=== PATIENT | female | born 1995 | race Caucasian/White ===

== ENCOUNTER 2018-11-22 22:25 | Emergency (ER) | payer BC ==
[2018-11-22 22:58] LABS: URINE APPEARANCE CLEAR; URINE BILIRUBIN NEGATIVE (NEGATIVE); URINE BLOOD MODERATE (NEGATIVE); URINE COLOR YELLOW; URINE GLUCOSE (UA) NEGATIVE (NEGATIVE); URINE KETONE NEGATIVE (NEGATIVE); URINE LEUKOCYTE ESTERASE NEGATIVE (NEGATIVE); URINE NITRITE NEGATIVE (NEGATIVE); URINE PROTEIN NEGATIVE (NEGATIVE)
[2018-11-22] MEDS ORDERED: KETOROLAC 30 MG/ML VIAL IVP ONE (22:58)
[2018-11-22] MEDS ORDERED: 0.9 % SODIUM CHLORIDE 1000ML 1,000 ML IV SCH (23:00)
--- NOTE | 2018-11-22 23:02 | Emergency Department Record ---
History of Present Illness - General Chief Complaint: Back Pain/Injury Stated Complaint: BACK PAIN Time Seen by Provider: 11/22/18 22:53 Source: Patient Mode of Arrival: Ambulatory Limitations: No limitations - History of Present Illness Initial Comments: 23 yo female presents to ED for evaluation of right sided flank and right lower quadrant abdominal pain symptoms that began this evening. Patient denies fevers, chills, or dysuria symptoms. Patient reports similar symptoms with previous kidney stones approximately 8 months ago, reports previous kidney infection. Patient denies nausea, vomiting, or change in stools. Patient has not taken anything for her symptoms prior to arrival. MD Complaint: Back pain Onset/Timin -: Hour(s) Radiation: Abdomen Severity: Moderate Severity scale (1-10): 5 Quality: Sharp, Stabbing Consistency: Constant Improves With: None Worsens With: None Context: History of kidney stones Associated Symptoms: Nausea/vomiting - Related Data Home Medications Medication Instructions Recorded Confirmed Last Taken Albuterol Sulfate [Albuterol 1 - 2 puff IH ASDIR 11/22/18 11/22/18 Unknown Sulfate Hfa] Levonorgestrel [Mirena] 1 each IY ASDIR 11/22/18 11/22/18 Unknown Allergies Allergy/AdvReac Type Severity Reaction Status Date / Time acetaminophen [From [place]] Allergy RASH Verified 11/22/18 22:43 hydrocodone [From [place]] Allergy RASH Verified 11/22/18 22:43 tramadol Allergy ITCHING Verified 11/22/18 22:43 Travel Screening - Travel/Exposure Within Last 30 Days Have you traveled within the last 30 days?: No - Travel/Exposure Within Last Year Have you traveled outside the [place] in the last year?: No - Additonal Travel Details Have you been exposed to anyone with a communicable illness?: No - Travel Symptoms Symptom Screening: None Review of Systems Constitutional: Denies: Chills, Fever, Malaise, Night sweats Eyes: Denies: Eye discharge, Eye pain ENT: Denies: Congestion, Ear pain, Epistaxis Respiratory: Denies: Cough, Dyspnea Cardiovascular: Denies: Chest pain, Dyspnea on exertion Endocrine: Denies: Fatigue, Heat or cold intolerance Gastrointestinal: Reports: Abdominal pain, Nausea. Denies: Constipation, Diarrhea, Vomiting Genitourinary: Denies: Incontinence, Retention Musculoskeletal: Reports: Back pain. Denies: Arthralgia Skin: Denies: Bruising, Change in color Neurological: Denies: Abnormal gait, Confusion, Headache, Seizure Psychiatric: Denies: Anxiety Hematological/Lymphatic: Denies: Anemia, Blood Clots Past Medical History - SOCIAL HISTORY Smoking Status: Never smoker Alcohol Use: None Drug Use: None - RESPIRATORY Hx Respiratory Disorders: Yes Hx Asthma: Yes Hx Bronchitis: Yes - CARDIOVASCULAR Hx Cardio Disorders: No - NEURO Hx Neuro Disorders: No - GI Hx GI Disorders: No - Hx Genitourinary Disorders: Yes Hx Kidney Stones: Yes Hx UTI: Yes - ENDOCRINE Hx Endocrine Disorders: No - MUSCULOSKELETAL Hx Musculoskeletal Disorders: No - PSYCH Hx Psych Problems: No - HEMATOLOGY/ONCOLOGY Hx Hematology/Oncology Disorders: No Family Medical History Any Significant Family History?: No Physical Exam - General General Appearance: Alert, Oriented x3, Cooperative, Moderate distress Limitations: No limitations - Head Head exam: Atraumatic, Normocephalic, Normal inspection Head exam detail: negative: Abrasion, Contusion, Bess's sign, General tenderness, Hematoma, Laceration - Eye Eye exam: Normal appearance. negative: Conjunctival injection, Periorbital swelling, Periorbital tenderness, Scleral icterus - ENT Ear exam: negative: Auricular hematoma, Auricular trauma Nasal Exam: negative: Active bleeding, Discharge, Dried blood, Foreign body Mouth exam: negative: Drooling, Laceration, Muffled voice, Tongue elevation - Neck Neck exam: Normal inspection. negative: Meningismus, Tenderness - Respiratory Respiratory exam: Normal lung sounds bilaterally. negative: Rales, Respiratory distress, Rhonchi, Stridor - Cardiovascular Cardiovascular Exam: Regular rate, Normal rhythm, Normal heart sounds - GI/Abdominal GI/Abdominal exam: Soft, Tenderness (TTP RLQ on examination, no rebound, guarding symptoms are present on examination.). negative: Rebound, Rigid - Rectal Rectal exam: Deferred - exam: Deferred - Extremities Extremities exam: Normal inspection. negative: Pedal edema, Tenderness - Back Back exam: Reports: CVA tenderness (R). Denies: Paraspinal tenderness, Rash noted - Neurological Neurological exam: Alert, Normal gait, Oriented X3 - Psychiatric Psychiatric exam: Normal affect, Normal mood - Skin Skin exam: Normal color. negative: Abrasion Type of lesion: negative: abrasion Course Vital Signs 11/22/18 22:34 Temperature 98.2 F Pulse Rate 80 Respiratory 20 Rate Blood Pressure 119/80 Pulse Ox 99 - Reevaluation(s) Reevaluation #1: 11/22/18 23:54 Laboratory studies were reviewed and appear grossly unremarkable for an acute process except for the following: UA: 3-5 WBCs 0-2 RBCs 16-20 Epis Few Bacteria UA appears most c/w contamination, no significant infection appears present. Patient is back from CT imaging, awaiting results at this time. Patient on her mobile phone at this time, reports pain symptoms are improved and appears comfortable on re-examination. Reevaluation #2: 11/23/18 00:33 CT Abdomen and Pelvis: 3 mm non-obstructing calculus right kidney No other acute ureteral calculi present. Patient was updated on her results, reports improvement in her pain symptoms and appears visually more comfortable on re-examination. Patient is on her mobile phone on re-examination. Patient verbalizes understanding of all instructions, and appears stable for discharge at this time. Medical Decision Making - Lab Data Result diagrams: 11/22/18 23:07 11/22/18 23:07 Disposition Disposition: Discharge Clinical Impression: Flank pain Disposition: Home, Self-Care Condition: (2) Stable Instructions: Flank Pain (ED) Additional Instructions: Return to ED if your symptoms worsen or if you have any concerns. Ibuprofen as directed. Follow-up with your family doctor in 3-5 days as directed. Forms: Patient Portal Access Time of Disposition: 00:35 Quality - Quality Measures Quality Measures: N/A - Blood Pressure Screening Does Patient Have Any of the Following: No Blood Pressure Classification: Pre-Hypertensive BP Reading Systolic Measurement: 119 Diastolic Measurement: 80 Screening for High Blood Pressure: < Pre-Hypertensive BP, F/U Documented > [G8950] Pre-Hypertensive Follow-up Interventions: Referral to alternative/primary care provider.
[2018-11-22 23:07] LABS: HCG,QUALITATIVE URINE NEGATIVE (NEGATIVE); URINE BACTERIA FEW; URINE EPITHELIAL CELLS 16 - 20 (FEW); URINE MUCUS MODERATE; URINE RBC 0 - 2 (NONE SEEN)
[2018-11-22 23:17] LABS: ABSOLUTE NEUTROPHIL COUNT 4.36; BASO % 0.5 % (0-6); EOS % 1.8 % (0-6); HEMATOCRIT 41.9 % (35.0-47.0); HEMOGLOBIN 13.2 gm/dl (11.6-16.0); LYMPH % 31.9 % (16-45); MEAN CELL VOLUME 89.3 fl (81-97); MEAN CORPUSCULAR HEMOGLOBIN 28.1 pg (27-33); MEAN CORPUSCULAR HGB CONC 31.5 g/dl (32-36); MEAN PLATELET VOLUME 10.5 fl (7.4-10.4); MONO % 8.8 % (0-9); PLATELET COUNT 333 K/uL (130-400); RED BLOOD COUNT 4.69 M/uL (3.80-5.40); RED CELL DISTRIBUTION WIDTH 14.8 % (11.5-14.5); WHITE BLOOD COUNT W/O DIFF 7.7 K/uL (4.2-12.2)
[2018-11-22 23:25] LABS: BLOOD UREA NITROGEN 11 mg/dL (6-20); CREATININE 0.8 mg/dL (0.5-0.9); EST GLOMERULAR FILTRATION RATE > 60 mL/min
[2018-11-22 23:26] LABS: LIPASE 19 U/L (13-60)
[2018-11-22 23:28] LABS: GLUCOSE,RANDOM 100 mg/dL (74-109)
[2018-11-22 23:31] LABS: ALB/GLOB RATIO 1.9 (1.1-1.8); ALBUMIN 4.6 g/dL (4.0-5.0); ALKALINE PHOSPHATASE 75 U/L (35-104); ALT/SGPT 16 U/L (<33); AST/SGOT 14 U/L (10.0-35.0)
--- NOTE | 2018-11-24 10:19 | CT SCAN REPORT ---
EXAM: CT SCAN OF THE ABDOMEN AND PELVIS WITHOUT CONTRAST HISTORY: RIGHT FLANK PAIN AND RIGHT LOWER QUADRANT PAIN. TECHNIQUE: Axial CT scan of the abdomen and pelvis was obtained without oral or IV contrast. A preliminary report was provided by [facility]. Comparison: No prior CT with which to compare. FINDINGS: The gallbladder is relatively contracted with no calcified gallstones seen within the gallbladder. No intrarenal calculi is seen within the right kidney. Single small calculus lower pole left kidney, currently nonobstructing. No hydronephrosis or hydroureter on either side. As such the entire course of both ureters is somewhat difficult to follow throughout the retroperitoneum and pelvis in their nondilated state, however, no calcification suspicious for a ureteral calculus identified on either side and no bladder calculus evident. T- shaped metallic density in the uterus incidentally noted consistent with an IUD in place. Evaluation of the bowel and viscera extremely limited without oral or IV contrast. Given this limitation, no definite hepatic, splenic, adrenal, pancreatic, or renal mass identified. I believe the appendix is identified as a normal caliber structure with no appendicitis evident. The lung bases appear clear. No free intraperitoneal air or free intraperitoneal fluid evident. Small umbilical hernia containing adipose tissue, but no bowel. IMPRESSION: 1. SINGLE SMALL NONOBSTRUCTING CALCULUS LOWER POLE LEFT KIDNEY. NO DEFINITE HYDRONEPHROSIS OR URETERAL CALCULUS ON EITHER SIDE EVIDENT. 2. SMALL UMBILICAL HERNIA CONTAINING ADIPOSE TISSUE, BUT NO BOWEL. 3. IUD WITHIN THE UTERUS. 4. THE APPENDIX APPEARS NEGATIVE. NO DEFINITE FREE INTRAPERITONEAL AIR OR FREE INTRAPERITONEAL FLUID EVIDENT. JOB NUMBER: [id number] [facility]
== END 2018-11-23 00:47 | disposition home or self-care (01) ==
LOC: ER 22:25
DX: R10.31 Right lower quadrant pain (principal); N20.0 Calculus of kidney
CPT/HCPCS: 99284 ×2; 96374; 83690; 85025; 80053; 81001; 81025; 74176; J1885; J7030